=== PATIENT | female | born 1990 | race Caucasian/White ===

== ENCOUNTER → 2021-01-05 01:42 | Outpatient (CLI) | payer BC, SELFPAY ==
[2021-01-05 19:35] LABS: SARS-CoV-2 RNA PCR Negative
== END ==
PROVIDERS: PCP Family Medicine; Visit Provider Internal Medicine Gastroenterology
DX: Z01.812 Encounter for preprocedural laboratory examination (principal); Z20.822 Contact with and (suspected) exposure to COVID-19
CPT/HCPCS: C9803; U0003; U0005

== ENCOUNTER 2021-01-08 00:45 | Day surgery (SDC) | payer BC, SELFPAY ==
[2020-12-25 10:05] VITALS: BMI 23.4
[2021-01-08 12:11] VITALS: BP 119/71; PULSE 71; RESP 18; TEMP 36.5; O2SAT 100; BMI 24.0
--- NOTE | 2021-01-08 12:14 | P.PNAN_ITS ---
Anes - Initial Pre Proc Eval Procedure: Operation Date: 01/08/21 13:30 Proposed Procedures p Screening Colonoscopy - Jose Angeles MD Date/Time: 01/08/21 12:14 Surgeon: Jose Angeles MD Pre Op Diagnosis: Family hx of Colon CA, Neoplasm Screening Patient Data Age: 30 Gender: F Height: 5 ft 8 in Weight: 71.6 kg Last Vital Signs Temp 36.5 C 01/08/21 12:11 Pulse 71 01/08/21 12:11 Resp 18 01/08/21 12:11 BP 119/71 01/08/21 12:11 Pulse Ox 100 01/08/21 12:11 Allergies Allergy/AdvReac Type Severity Reaction Status Date / Time Antihistamines - Alkylamine Allergy Mild Nervousness Unverified 01/08/21 12:10 Home Medications Medication Instructions Recorded Confirmed Type fluoxetine 10 mg capsule 10 mg PO DAILY #90 cap 08/26/20 12/25/20 Rx olanzapine 2.5 mg tablet 2.5 mg PO DAILY #90 tablet 08/26/20 12/25/20 Rx sodium,potassium,mag sulfates 17.5 See Rx Instructions PO .COMPLEX 12/24/20 Rx gram-3.13 gram-1.6 gram oral soln #354 ml Patient hx anesthesia problems: none Family hx anesthesia problems: none PMFSH Past Medical History Medical History Encounter for general adult medical examination with abnormal findings Lab test positive for detection of COVID-19 virus 11.10.20 Other termite inspector (current) drug therapy Family History Family History Other Carcinoma of colon Cerebrovascular accident Depression Diabetes mellitus Family history of cardiovascular disease Family history of hypercholesterolemia Family history of mental disorder Hypertension Malignant neoplasm of prostate Social History Social History Smoking status: Former smoker Tobacco type: cigarettes Smoking end date: 11/21/15 Additional smoking assessment comments: social smoker in the past Alcohol intake: current Drinks per week: 10 Substance use: never Substance use type: does not use Living arrangements: with family Gender identity (if verbalized by the patient): Female Spiritual care concerns: No Anes - Eval Final PreProcedure Day of Procedure 01/08/21 12:14 Patient weight: normal Heart: regular rate and rhythm Lungs: clear to auscultation Airway: Mallampati scale class II Neurological: alert and oriented Last oral intake: >/= 8 hours ASA classification: II Emergent: no Anesthetic plan: proceed Anesthesia type and monitoring: general GIVS and standard monitoring Informed Consent: The patient's anesthetic plan and its attendant risks and benefits were discussed with the patient/family/POA. Questions were solicited and answers provided to the satisfaction of the patient/family/POA.
[2021-01-08] MEDS: LACTATED RINGERS 1,000 ML 150 ML IV CONT (12:22)
--- NOTE | 2021-01-08 13:31 | PM.HPGS ---
History of Present Illness History of Present Illness Consent: Risks, benefits, and alternatives have been discussed and questions answered. Patient agrees to proceed with procedure. Chief complaint: Family hx of Colon CA, Neoplasm Screening Narrative: Farida Addison is a 30 year old female here for first screening colonoscopy, father had colon cancer at his 30's Review of Systems Constitutional: Constitutional: Denies headache(s) and Denies weakness Eyes: Eyes: Denies blurry vision ENT: Reports Normal hearing present, Denies headache(s) and Denies neck pain Cardiovascular: Cardiovascular: Denies chest pain and Denies dyspnea Respiratory: Respiratory: Denies dyspnea Gastrointestinal: Gastrointestinal: Reports no additional gastrointestinal complaints Genitourinary: Genitourinary: Denies dysuria Musculoskeletal: Musculoskeletal: Denies neck pain Integumentary/Breasts: Skin/Breast: Denies dry skin Neurologic: Reports Normal hearing present, Denies headache(s) and Denies weakness Psychiatric: Psychiatric: Denies anxiety Endocrine: Endocrine: Denies change in body appearance Hematologic/Lymphatic: Hematologic/Lymphatic: Denies easy bleeding Allergic/Immunologic: Allergic/Immunologic: Denies urticaria PMF Past Medical History Medical History Encounter for general adult medical examination with abnormal findings Lab test positive for detection of COVID-19 virus 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.20 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 Family History Family History Other Carcinoma of colon Cerebrovascular accident Depression Diabetes mellitus Family history of cardiovascular disease Family history of hypercholesterolemia Family history of mental disorder Hypertension Malignant neoplasm of prostate Social History Social History Smoking status: Former smoker Tobacco type: cigarettes Smoking end date: 11/21/15 Additional smoking assessment comments: social smoker in the past Alcohol intake: current Drinks per week: 10 Substance use: never Substance use type: does not use Living arrangements: with family Gender identity (if verbalized by the patient): Female Spiritual care concerns: No Meds Home Medications and Allergies Home Medications Medication Instructions Recorded Confirmed Type fluoxetine 10 mg capsule 10 mg PO DAILY #90 cap 08/26/20 12/25/20 Rx olanzapine 2.5 mg tablet 2.5 mg PO DAILY #90 tablet 08/26/20 12/25/20 Rx sodium,potassium,mag sulfates 17.5 See Rx Instructions PO .COMPLEX 12/24/20 Rx gram-3.13 gram-1.6 gram oral soln #354 ml Allergies Allergy/AdvReac Type Severity Reaction Status Date / Time Antihistamines - Alkylamine Allergy Mild Nervousness Unverified 01/08/21 12:10 Vital Signs Vital Signs - 24 hr 01/08/21 12:11 Temperature 97.7 F Pulse Rate 71 Respiratory Rate 18 Blood Pressure 119/71 Pulse Oximetry 100 Exam Const: General: comfortable and no acute distress HENMT: General nose exam: Normal nares present Eyes: General: appearance normal, both eyes and all related structures Neck: Neck: no JVD Resp: Auscultation: clear to auscultation bilaterally Cardio: Rate: regular rate Rhythm: regular rhythm GI: Inspection: non-distended GI Palp: Yes Soft to palpation Skin: General skin exam: normal color Neuro: General: gait normal Speech: normal speech Extrem: General: normal to inspection Psych: Mental Status: mental status grossly normal Assessment and Plan Assessment and plan (1) FH: colon cancer in relative <50 years old: Code(s): Z80.0 - Family history of malignant neoplasm of digestive organs Status: Acute
[2021-01-08 13:52] VITALS: BP 91/60; PULSE 87; RESP 22; O2SAT 100
[2021-01-08 14:02] VITALS: BP 91/69; PULSE 93; RESP 17; O2SAT 100
[2021-01-08 14:12] VITALS: BP 104/71; PULSE 65; RESP 15; O2SAT 100
== END 2021-01-08 14:25 | disposition home or self-care (01) ==
PROVIDERS: PCP Family Medicine; Visit Provider Internal Medicine Gastroenterology
PROC: 0DJD8ZZ Inspection of Lower Intestinal Tract, Via Natural or Artificial Opening Endoscopic (ICD-10-PCS; CPT 45378; principal; 2021-01-08 13:30)
DX: Z12.11 Encounter for screening for malignant neoplasm of colon (principal); D12.0 Benign neoplasm of cecum; K57.30 Diverticulosis of large intestine without perforation or abscess without bleeding; K64.8 Other hemorrhoids; Z80.0 Family history of malignant neoplasm of digestive organs; Z86.16 Personal history of COVID-19; Z87.891 Personal history of nicotine dependence
CPT/HCPCS: 45380; 88305; C9803; J2704; J7120; U0003; U0005

== ENCOUNTER 2021-02-03 08:36 | Outpatient (CLI) | payer BC, SELFPAY | END 2021-02-03 08:37 | disposition home or self-care (01) | LOC: ANHCOVIDVC 08:36 | PROVIDERS: PCP Family Medicine | DX: Z23 Encounter for immunization (principal) | CPT/HCPCS: 0001A; 91300 ==

== ENCOUNTER 2021-02-24 08:28 | Outpatient (CLI) | payer BC, SELFPAY | END 2021-02-24 08:29 | LOC: ANHCOVIDVC 08:28 | PROVIDERS: PCP Family Medicine | DX: Z23 Encounter for immunization (principal) | CPT/HCPCS: 0002A; 91300 ==